=== PATIENT | male | born 1930 | race Two or more races ===

== ENCOUNTER → 2016-06-23 | Outpatient (CLI) | payer OTHER, MEDICAID ==
--- NOTE | 2016-06-23 18:41 | DX ---
Chest, Two Views at 1730 hours History: Shortness of breath, cough. Comparison: September 2014. Findings: Cardiac silhouette is mildly enlarged with unipolar pacemaker. Tortuous aorta with athero sclerotic calcification. Bilateral peribronchial thickening. Patchy bilateral lower lobe opacities ap pear more prominent since September 2014 which may represent early pneumonia. Impression: 1. Chronic bronchitis with either early bilateral lower lobe pneumonia or subsegmental atelectasis. 2. Pacemaker without pneumothorax.
== END ==
LOC: FIMAGING 16:48
PROVIDERS: ATTEND Internal Medicine
DX: J42 Unspecified chronic bronchitis (principal); R06.02 Shortness of breath; R05 Cough; R91.8 Other nonspecific abnormal finding of lung field; I25.10 Atherosclerotic heart disease of native coronary artery without angina pectoris; Z95.0 Presence of cardiac pacemaker